=== PATIENT | female | born 1990 ===

== ENCOUNTER → 2017-10-21 | Emergency (ER) | payer OTHER ==
[~2017-10-21] VITALS: Ht 165.1 cm; Wt 86.2 kg
[~2017-10-21] MED LIST: NEXIUM5 MG; ZITHROMAX TRI-500 MG PO
== END | disposition home or self-care (01) ==
LOC: ER 16:42
DX: K25.9 Gastric ulcer, unspecified as acute or chronic, without hemorrhage or perforation (principal); K29.60 Other gastritis without bleeding